=== PATIENT | female | born 1995 | race Caucasian/White ===

== ENCOUNTER 2018-11-26 14:55 | Outpatient (CLI) | payer OTHER, SELFPAY ==
[2018-11-26 16:27] LABS: C-Reactive Protein 0.12 mg/dL (0.0-0.3)
[2018-11-29 21:55] LABS: Alternaria Tenuis IgE <0.35 kU/L; Aspergillus Fumigatus IgE <0.35 kU/L; Cladosporium IgE <0.35 kU/L; Fusarium moniliforme, IgE <0.35 kU/L (<0.35); Penicillium chrysogenum IgE <0.35 kU/L; Stemphyllium IgE <0.35 kU/L
[2018-11-30 17:07] LABS: CLASS 0; Rhodotorula IgE <0.35 kU/L (<0.35)
== END 2018-11-26 15:15 ==
PROVIDERS: PCP Family Medicine; Visit Provider Otolaryngology Otolaryngology/Facial Plastic Surgery
DX: R19.7 Diarrhea, unspecified (principal)
CPT/HCPCS: 36415; 86003; 86140

== ENCOUNTER 2018-11-26 16:35 | Outpatient (CLI) | payer OTHER, SELFPAY ==
--- NOTE | 2018-11-26 16:10 | DI.US_ITS ---
SYMPTOM/DIAGNOSIS: DEEP DYSPAREUNIA N94.12 PELVIC ULTRASOUND: A transabdominal and transvaginal examination was carried out. The uterus measures 7.1 cm in length, 3.1 cm in height and 4.2 cm in width with an endometrial stripe thickness of 9.8 mm. There are a number of small Nabothian cysts. The right ovary appears to contain a 5.3 x 4.3 x 4.9 cm complex avascular mass which could represent a dermoid. The left ovary measures 3.6 x 2.0 x 2.2 cm. There is no evidence of pelvic free fluid. SUMMARY: A 5.3 x 4.3 x 4.9 cm complex avascular mass appears to be associated with the right ovary and could represent a dermoid. The examination is otherwise unremarkable.
== END 2018-11-26 16:55 ==
PROVIDERS: PCP Family Medicine; Visit Provider Nurse Practitioner Adult Health
DX: N94.12 Deep dyspareunia (principal); N88.8 Other specified noninflammatory disorders of cervix uteri; N83.201 Unspecified ovarian cyst, right side; N83.8 Other noninflammatory disorders of ovary, fallopian tube and broad ligament
CPT/HCPCS: 76830; 76856

== ENCOUNTER 2022-02-07 13:14 | Outpatient (CLI) | payer BC, SELFPAY ==
[2022-02-07 10:43] LABS: HCG Quant, Pregnancy < 1 mIU/mL (1-3)
== END 2022-02-07 13:15 | disposition home or self-care (01) ==
LOC: LBO 13:22
PROVIDERS: PCP Family Medicine; Visit Provider Nurse Practitioner Women's Health
DX: Z32.00 Encounter for pregnancy test, result unknown (principal)
CPT/HCPCS: 36415; 84702

== ENCOUNTER 2022-02-09 16:29 | Outpatient (REF) | payer BC, SELFPAY ==
--- NOTE | 2022-02-09 15:00 | PAPFT_PTH ---
PATIENT: Mel Cody LOC: [facility] U#:[id number] AGE/SX: 26/F ROOM: RE02/09/[address]: Francoise Santizo NP : 1995 BED: DIS: 02/09/2022 SPEC #: [id number] RECD: 02/09/22 18:23 STATUS: VALENTINO RENaomi #: [id number] MARIXA: 02/09/22 15:[address]: Francoise Santizo NP DEPT: [facility] Cytology RECD BY: Alessandra Loja ENTERED: 02/09/22 18:23 SP TYPE: PAPFT OTHR DR: Ramón Duffy Tissues: 1 - CX/ENDOCX FOR PAP SMEARS Procedures: PAP THIN PREP/[facility] Screening Comments: [id number] (CHLAMYDIA/GC)
[2022-02-10 14:40] LABS: Chlamydia Result Negative (Negative); GC Result Negative (Negative)
== END 2022-02-09 16:30 | disposition home or self-care (01) ==
LOC: LBN 16:29
PROVIDERS: PCP Family Medicine; Visit Provider Nurse Practitioner Women's Health
DX: Z11.51 Encounter for screening for human papillomavirus (HPV) (principal)
CPT/HCPCS: 87491; 87591; 88142